=== PATIENT | male | born 1975 | race Caucasian/White ===

== ENCOUNTER 2017-05-21 15:26 | Inpatient (IN) | payer OTHER ==
[~2017-05-21] VITALS: Ht 177.8 cm; Wt 110.8 kg
[2017-05-21 16:47] LABS: HEMATOCRIT 36.7 % (38.0-50.0); HEMOGLOBIN 13.6 G/DL (12.5-16.6); MCH 33.3 PG (29.0-34.0); MCHC 37.1 G/DL (30.0-36.0); MCV 89.7 FL (86-99); PLATELET COUNT 278 K/uL (156-360); RBC DIS.WIDTH-CV 11.7 % (11.8-14.6); RBC DIS.WIDTH-SD 38.1 % (39-53); RED BLOOD COUNT 4.09 M/uL (4.00-5.50); WHITE BLOOD COUNT 16.8 K/uL (4.1-10.2)
[2017-05-21 16:57] LABS: APPEARANCE CLEAR ((CLEAR)); BILIRUBIN NEGATIVE; BLOOD SMALL; COLOR YELLOW ((YELLOW)); GLUCOSE (STRIP) >=500; KETONES NEGATIVE; LEUKOCYTES NEGATIVE; NITRITE NEGATIVE; PROTEIN (STRIP) 30; SPECIFIC GRAVITY 1.014 (1.000-1.030)
[2017-05-21 17:02] LABS: CHLORIDE 99 mEq/L (99-109); POTASSIUM 3.3 mEq/L (3.7-5.4); SODIUM 136 mEq/L (136-147)
[2017-05-21 17:04] LABS: GLUCOSE 328 mg/dL (70-99)
[2017-05-21 17:08] LABS: CREATININE 1.3 mg/dL (0.6-1.3); GFR ESTIMATE (CALCULATED) > 59 mL/min/ (58.99-99999)
[2017-05-21 17:09] LABS: UREA NITROGEN (BUN) 11 mg/dL (9-23)
[2017-05-21 17:12] LABS: BACTERIA NONE SEEN /HPF; EPITHELIAL CELLS RARE /HPF; MUCUS TRACE /LPF; WHITE BLOOD CELLS 0-5 /HPF (0-5)
[2017-05-21] MEDS ORDERED: AZITHROMYCIN250 MG PO (17:43)
[2017-05-21] MEDS ORDERED: IBUPROFEN800 MG PO (17:43)
[2017-05-21 21:47] VITALS: BP 134/71
[2017-05-21 23:23] VITALS: BP 131/66
[2017-05-22 06:11] LABS: HEMATOCRIT 35.5 % (38.0-50.0); HEMOGLOBIN 12.8 G/DL (12.5-16.6); MCH 32.8 PG (29.0-34.0); MCHC 36.1 G/DL (30.0-36.0); PLATELET COUNT 251 K/uL (156-360); RBC DIS.WIDTH-CV 11.9 % (11.8-14.6); RBC DIS.WIDTH-SD 39.8 % (39-53); WHITE BLOOD COUNT 15.1 K/uL (4.1-10.2)
[2017-05-22 06:38] LABS: CHLORIDE 102 MEQ/L (99-109); GFR ESTIMATE (CALCULATED) > 59 mL/min/ (58.99-99999); POTASSIUM 3.2 MEQ/L (3.7-5.4); SODIUM 139 MEQ/L (136-147); UREA NITROGEN (BUN) 10 mg/dL (9-23)
[2017-05-22 06:40] LABS: GLUCOSE 110 mg/dL (70-99)
[2017-05-22 07:20] VITALS: BP 143/77
[2017-05-22 09:21] LABS: TROP-I INTERPRETATION NEGATIVE; TROPONIN-I < 0.01 ng/mL (0.0-0.30)
[2017-05-22 13:35] LABS: HEMOGLOBIN A1c (GLYCOHEMOGLOB) 5.7 % (Below 5.7)
[2017-05-22 15:00] VITALS: BP 122/78
[2017-05-22 22:48] VITALS: BP 125/73
[2017-05-23 06:18] LABS: HEMATOCRIT 35.8 % (38.0-50.0); MCH 33.2 PG (29.0-34.0); MCHC 36.3 G/DL (30.0-36.0); MCV 91.6 FL (86-99); PLATELET COUNT 278 K/uL (156-360); RBC DIS.WIDTH-SD 40.4 % (39-53); RED BLOOD COUNT 3.91 M/uL (4.00-5.50); WHITE BLOOD COUNT 10.8 K/uL (4.1-10.2)
[2017-05-23 08:00] VITALS: BP 114/79
[2017-05-23] MEDS ORDERED: CEFTIN500 MG PO (08:44)
== END 2017-05-23 11:55 | disposition home or self-care (01) | DRG 195 ==
LOC: EME 15:26 → 5EAST 20:01 → EDOF 20:01 → 5EAST 20:01 → ENRESERV 20:09 → 5EAST 21:30 → ENPENDDIS 05-23 → 5EAST 05-23 11:55
PROVIDERS: Hospitalist; Physician Assistant
DX: J18.1 Lobar pneumonia, unspecified organism (principal); R07.89 Other chest pain; R73.9 Hyperglycemia, unspecified; F17.210 Nicotine dependence, cigarettes, uncomplicated
CPT/HCPCS: 71046; 71250; 80048; 81003; 82948; 83036; 84484; 85027; 87449; 93005; 94640; 99202; 99281; 99285; J0456; J0696; J1815; J7030; J7050